=== PATIENT | female | born 1985 | race Caucasian/White ===

== ENCOUNTER 2022-05-14 18:28 | Observation (INO) | payer MEDICAID, SELFPAY ==
[2022-05-14] VITALS (7 sets, daily range): BP systolic 160–219; BP diastolic 80–121; PULSE 74–79; RESP 18–22; TEMP 36.6–36.8; O2SAT 95–98; BMI 39.1
--- NOTE | 2022-05-14 18:30 | XRR_ITS ---
PROCEDURE INFORMATION: Exam: XR Chest Exam date and time: 05/14/2022 6:38 PM Age: 36 years old Clinical indication: Pain; Chest pressure; Additional info: Cp TECHNIQUE: Imaging protocol: Radiologic exam of the chest. Views: 1 view. COMPARISON: No relevant prior studies available. FINDINGS: Lungs: Unremarkable for portable technique. No consolidation. Pleural spaces: Unremarkable. No pleural effusion. No pneumothorax. Heart/Mediastinum: Unremarkable. No cardiomegaly. Bones/joints: Unremarkable for age. XR/XR chest 1V portable [id number] IMPRESSION: Negative portable chest.
--- NOTE | 2022-05-14 18:58 | ED_ITS ---
HPI - Abdominal Pain General: Chief Complaint: Abdominal Pain Stated Complaint: right side pain,n/v Time Seen by Provider: 05/14/22 18:32 Source: patient Mode of arrival: ambulatory Limitations: no limitations History of Present Illness: 36-year-old female states roughly 4 hours ago she had a sudden onset of right-sided flank pain she states the pain is currently a 7 out of 10 its caused her to have some nausea and vomiting states she has had a kidney stone in the past she denies any worsening proving factors denies any dysuria denies any fevers. Associated Symptoms: Reports nausea and vomiting; Denies chills and fever(s) Review of Systems Const: Denies: fever(s), chills, body aches or change in appetite Eyes: Denies: blurry vision or eye discomfort ENMT: Denies: throat pain or dental pain Card: Denies: chest pain Resp: Denies: dyspnea GI: Reports: nausea and vomiting : Reports: flank pain Musc: Denies: neck pain or back pain Skin/Breast: Denies: rash Neuro: Denies: headache(s) Psych: Denies: depression Alexis/Lymph: Denies: easy bruising All/Imm: Denies: urticaria PFSH ED PFSH: Medical History Generalized anxiety disorder Lost custody of children Major depressive disorder Social History Current gender identity: Female Physical Exam Const: COMMON NORMALS: no acute distress, patient oriented x3 and healthy appearing HENMT: COMMON NORMALS: normocephalic and atraumatic HEAD & SCALP: normocephalic and atraumatic Eye: COMMON NORMALS: Equal, round and reactive pupils present and EOMs intact bilaterally PUPIL: Yes Equal, round and reactive pupils present Neck/C-Spine: COMMON NORMALS: full ROM and supple Chest: COMMONS NORMALS: normal inspection of the chest and normal palpation of entire chest wall Resp: COMMON NORMALS: normal respiratory effort, No retractions, No use of accessory muscles and clear to auscultation bilaterally AUSCULTATION: clear to auscultation bilaterally Cardio: COMMON NORMALS: regular rate, regular rhythm and No murmurs present (Cardio) RATE: regular rate RHYTHM: regular rhythm GI: COMMON NORMALS: Normal to inspection, nondistended, normoactive bowel sounds present, Soft to palpation, non-tender and no masses PALPATION: Yes Soft to palpation Extremity: COMMON NORMALS: normal to inspection and full ROM Neuro: COMMON NORMALS: patient oriented x3, moves all extremities and no focal motor deficits Psych: COMMON NORMALS: mental status grossly normal, Normal thought process present and cooperative THOUGHT PROCESS: Normal thought process present Skin: COMMON NORMALS: no rashes or lesions noted and no wounds GENERAL SKIN EXAM: no rashes or lesions noted Course Vital Signs: Vital signs: Vital Signs Temperature 98.3 F 05/14/22 18:46 Pulse Rate 74 05/14/22 18:46 Respiratory Rate 22 H 05/14/22 18:46 Blood Pressure 195/121 05/14/22 18:46 Pulse Oximetry 98 05/14/22 18:46 Oxygen Delivery Me thod 05/14/22 18:46 MDM - Abdominal Pain Medical Decision Making Patient presents here with flank pain she does have a kidney stone along with a UTI she is afebrile her pain is much improved I spoke to Dr. Bai will admit at this time on IV antibiotics. Lab Data 05/14/22 18:56 05/14/22 18:56 Labs/Radiology: Radiology Impressions Chest X-Ray 05/14/22 18:30 IMPRESSION: Negative portable chest. Abdomen/Pelvis CT 05/14/22 18:58 IMPRESSION: 1. 5 mm obstructing calculus right mid ureter resulting in moderate right-sided hydronephrosis. 2. Additional tiny nonobstructing calculi both kidneys. Laboratory Results WBC 12.9 10^3/uL (4.0-10.0) H 05/14/22 18:56 RBC 4.96 10^6/uL (4.1-5.3) 05/14/22 18:56 Hgb 9.1 g/dL (11.5-15.3) L 05/14/22 18:56 Hct 33.5 % (37.0-47.0) L 05/14/22 18:56 MCV 67.5 fl (81-99) L 05/14/22 18:56 MCH 18.3 pg (28.0-34.0) L 05/14/22 18:56 MCHC 27.2 g/dL (30.0-36.0) L 05/14/22 18:56 RDW 20.4 % (12.1-15.1) H 05/14/22 18:56 Plt Count 216 10^3/cmm (130-400) 05/14/22 18:56 MPV Not Reportable 05/14/22 18:56 Neut % (Auto) 85.6 % 05/14/22 18:56 Lymph % (Auto) 7.2 % 05/14/22 18:56 [place] % (Auto) 6.1 % 05/14/22 18:56 Eos % (Auto) 0.4 % 05/14/22 18:56 Baso % (Auto) 0.3 % 05/14/22 18:56 Neut # (Auto) 11.06 10^3/uL (1.8-7.7) H 05/14/22 18:56 Lymph # (Auto) 0.9 10^3/uL (0.8-4.8) 05/14/22 18:56 [place] # (Auto) 0.8 10^3/uL (0.2-0.9) 05/14/22 18:56 Eos # (Auto) 0.1 10^3/uL (0.0-0.8) 05/14/22 18:56 Baso # (Auto) 0.0 10^3/uL (0.0-0.1) 05/14/22 18:56 Nucleated RBC % (auto) 0 % 05/14/22 18:56 Nucleated RBCs # 0.0 /100WBC 05/14/22 18:56 Sodium 137 mmol/L (136-145) 05/14/22 18:56 Potassium 3.2 mmol/L (3.5-5.1) L 05/14/22 18:56 Chloride 103 mmol/L (98-107) 05/14/22 18:56 Carbon Dioxide 20 mmol/L (22-29) L 05/14/22 18:56 Anion Gap 17.2 (5-19) 05/14/22 18:56 BUN 10 mg/dL (6-20) 05/14/22 18:56 Creatinine 0.6 mg/dL (0.5-0.9) 05/14/22 18:56 GFR Calculation 113.1 mL/min (90-130) 05/14/22 18:56 Glucose 110 mg/dL (65-115) 05/14/22 18:56 Calculated Osmolality 284 mOsm/kg (285-295) L 05/14/22 18:56 Calcium 9.3 mg/dL (8.5-10.5) 05/14/22 18:56 Total Bilirubin 0.3 mg/dL (0.15-1.2) 05/14/22 18:56 AST 16 U/L (0-32) 05/14/22 18:56 ALT 12 U/L (0-33) 05/14/22 18:56 Alkaline Phosphatase 124 U/L (35-105) H 05/14/22 18:56 Total Protein 7.5 g/dL (6.6-8.7) 05/14/22 18:56 Albumin 4.4 g/dL (3.5-5.2) 05/14/22 18:56 Globulin 3.1 g/dL (1.3-4.6) 05/14/22 18:56 Lipase 95 U/L (13-60) H 05/14/22 18:56 HCG, Qual Negative (Negative) 05/14/22 18:56 Urine Color Yellow (Yellow) 05/14/22 19:25 Urine Appearance Hazy (CLEAR) A 05/14/22 19:25 Urine pH 6 (5-7) 05/14/22 19:25 Ur Specific [place] 1.030 (1.005-1.030) 05/14/22 19:25 Urine Protein 1+ (Negative) H 05/14/22 19:25 Urine Glucose (UA) Norm (Normal) 05/14/22 19:25 Urine Ketones 1+ (Negative) H 05/14/22 19:25 Urine Blood 3+ (Negative) H 05/14/22 19:25 Urine Nitrate Positive (Negative) H 05/14/22 19:25 Urine Bilirubin 1+ (Negative) H 05/14/22 19:25 Urine Urobilinogen 1 mg/dL (Negative) H 05/14/22 19:25 Ur Leukocyte Esterase 2+ (Negative) H 05/14/22 19:25 Urine RBC >100 /hpf (0-2) H 05/14/22 19:25 Urine WBC >100 /hpf (0-5) H 05/14/22 19:25 Ur Squamous Epith Cells 5-10 /hpf (0-5) H 05/14/22 19:25 Amorphous Sediment Not Reportable 05/14/22 19:25 Urine Bacteria 3+ /hpf (NONE) H 05/14/22 19:25 Urine Mucus 1+ /hpf 05/14/22 19:25 Discharge Plan Discharge Patient Disposition: Admitted As Inpatient Clinical Impression: Kidney stone, Acute cystitis Condition: Stable Prescriptions: No Action lisinopril 2.5 mg tablet 2.5 mg PO DAILY sertraline 50 mg tablet See Rx Instructions .ROUTE .COMPLEX 30 Days Qty: 30 3RF Rx Instructions: take a half-tab po q day x 6 days then take a whole tab po daily if tolerated Coding Level of Care Code ED [employer] for Aayush Knutson
--- NOTE | 2022-05-14 18:58 | CTR_ITS ---
PROCEDURE INFORMATION: Exam: CT Abdomen And Pelvis Without Contrast Exam date and time: 05/14/2022 7:26 PM Age: 36 years old Clinical indication: Abdominal pain; Flank; Right; Prior surgery; Surgery type: C-sec; Additional info: Right flank pain TECHNIQUE: Imaging protocol: Computed tomography of the abdomen and pelvis without contrast. Radiation optimization: All CT scans at this facility use at least one of these dose optimization techniques: automated exposure control; mA and/or kV adjustment per patient size (includes targeted exams where dose is matched to clinical indication); or iterative reconstruction. REPORTING DATA: Count of CT and Cardiac NM exams in prior 12 months: This patient has received 0 known CTs and 0 known cardiac nuclear medicine studies in the 12 months prior to the current study. COMPARISON: CR (CHEST, ) 05/14/2022 6:38 PM RADIATION DOSE METRICS: Total DLP (mGy-cm): 939.48 FINDINGS: Lungs: Lung bases are clear. Liver: Normal. No mass. Gallbladder and bile ducts: Normal. No calcified stones. No ductal dilation. Pancreas: Normal. No ductal dilation. Spleen: Normal. No splenomegaly. Adrenal glands: Normal. No mass. Kidneys and ureters: 5 mm obstructing calculus right mid ureter resulting in moderate right hydronephrosis. Multiple tiny nonobstructing calculi both kidneys. Stomach and bowel: Unremarkable. No obstruction. No mucosal thickening. Appendix: No evidence of acute appendicitis. Intraperitoneal space: Unremarkable. No free air. No significant fluid collection. Vasculature: Unremarkable. No abdominal aortic aneurysm. Lymph nodes: Unremarkable. No enlarged lymph nodes. Urinary bladder: Unremarkable as visualized. Reproductive: Unremarkable as visualized. Bones/joints: Unremarkable. No acute fracture. Soft tissues: Unremarkable. CT/CT kidney stone [id number] IMPRESSION: 1. 5 mm obstructing calculus right mid ureter resulting in moderate right-sided hydronephrosis. 2. Additional tiny nonobstructing calculi both kidneys.
[2022-05-14] MEDS: sodium chloride 0.9% 1,000 ML 999 ML IV (19:01)
[2022-05-14] MEDS: ondansetron 2 mg/ML SDV 2 mL 4 MG IVP ×2 (19:01→23:34)
[2022-05-14] MEDS: morphine 4 mg/mL SDV 1 mL IVP ×2 (19:01→21:53)
[2022-05-14 19:22] LABS: HCG, Serum Qual Negative (Negative)
[2022-05-14 19:25] LABS: Alanine Aminotransferase 12 U/L (0-33); Albumin Level 4.4 g/dL (3.5-5.2); Alkaline Phosphatase 124 U/L (35-105); Anion Gap 17.2 (5-19); Aspartate Amino Transferase 16 U/L (0-32); Blood Urea Nitrogen 10 mg/dL (6-20); Calcium 9.3 mg/dL (8.5-10.5); Carbon Dioxide 20 mmol/L (22-29); Chloride 103 mmol/L (98-107); Globulin 3.1 g/dL (1.3-4.6); Glomerular Filtration Rate 113.1 mL/min (90-130); Glucose 110 mg/dL (65-115); Lipase 95 U/L (13-60); Osmolality Calculated 284 mOsm/kg (285-295); Potassium 3.2 mmol/L (3.5-5.1); Sodium 137 mmol/L (136-145); Total Bilirubin 0.3 mg/dL (0.15-1.2); Total Protein 7.5 g/dL (6.6-8.7)
[2022-05-14 19:26] LABS: Basophils % 0.3 %; Eosinophils # 0.1 10^3/uL (0.0-0.8); Eosinophils % 0.4 %; Hematocrit 33.5 % (37.0-47.0); Hemoglobin 9.1 g/dL (11.5-15.3); Lymphocytes # 0.9 10^3/uL (0.8-4.8); Lymphocytes % 7.2 %; Mean Corpuscular HGB Conc 27.2 g/dL (30.0-36.0); Mean Corpuscular Hemoglobin 18.3 pg (28.0-34.0); Mean Corpuscular Volume 67.5 fl (81-99); Monocytes # 0.8 10^3/uL (0.2-0.9); Monocytes % 6.1 %; Neutrophils # 11.06 10^3/uL (1.8-7.7); Neutrophils % 85.6 %; Nucleated Red Blood Cells % 0 %; Platelet Count 216 10^3/cmm (130-400); Red Blood Count 4.96 10^6/uL (4.1-5.3); Red Cell Distribution Width 20.4 % (12.1-15.1); White Blood Count 12.9 10^3/uL (4.0-10.0)
[2022-05-14 19:50] LABS: Add Urine Microscopic? YES; Bilirubin Urine 1+ (Negative); Blood Urine 3+ (Negative); Glucose Urine UA Norm (Normal); Ketones Urine 1+ (Negative); Leukocyte Esterase Urine 2+ (Negative); Nitrate Urine Positive (Negative); Protein Urine 1+ (Negative); Urine Appearance Hazy (CLEAR); Urine Color Yellow (Yellow); Urobilinogen Urine 1 mg/dL (Negative); pH Urine 6 (5-7)
[2022-05-14 19:53] LABS: Bacteria Urine 3+ /hpf; Mucus Urine 1+ /hpf; RBC Urine >100 /hpf (0-2); WBC Urine >100 /hpf (0-5)
[2022-05-14 19:54] LABS: Add Urine Culture? Yes
[2022-05-14 20:01] LABS: Slide Review Slide Review Perform
[2022-05-14] MEDS: cefTRIAXone 1,000 MG in sodium chloride 0.9% (plus) 50 ML 100 MG IV (20:03)
[2022-05-14] MEDS: HYDROmorphone 1 mg/mL INJ 1 mL 0.5 MG IVP (20:04)
--- NOTE | 2022-05-14 21:03 | P.HP_ITS ---
Providers/Chief Complaint Admitting Physician: Bolivar Bai MD Chief Complaint: Right ureteral stone History of Present Illness Elaine Isaacs is a 36 year old female presenting to ED tonight with abrupt onset of Right renal colicky pain rated as severe and associated with Nausea and Vomitting but no fever or chills. No clinical symptoms of cystitis but UA was + for RBCs and WBCs as well as bacteria. Nitrite +. CBC showed mildly elevate WBC. No hemodynamic signs of sepsis. Pain aggressively managed. Additional work up: * CT scan: 5 mm RIGHT MID URETERAL STONE with obstructive changes. Multiple small nonobstructing bilateral renal stones. * Vital signs stable. Patient does have a history of 1 spontaneous stone passage previously. No prior surgery for stones. Denies any recurrent UTIs Pain well controlled but due to evidence of cystitis and the concern for the potential of infectious progression in my conversation with the ED physician I recommended admission for IV antibiotics, pain control, and close observation. Will allow clear liquids tonight and place npo after MN to have the option for intervention if necessary. Review of Systems Const: Denies: fever(s), chills or body aches Eyes: Denies: blurry vision or yellow eyes Card: Denies: chest pain Resp: Denies: dyspnea or wheezing GI: Reports: abdominal pain, nausea and vomiting : Reports: flank pain; Denies: difficulty voiding, dysuria or urinary frequency Musc: Denies: extremity swelling, joint pain, joint redness or joint warmth Skin/Breast: Denies: rash Neuro: Denies: confusion or Slurred speech present Psych: Reports: anxiety and depression Endo: Denies: flushing Alexis/Lymph: Denies: easy bruising or easy bleeding All/Imm: Denies: urticaria or acute wheezing Medications/Allergies Home Medications Medication Instructions Recorded Confirmed Last Taken Type lisinopril 2.5 mg tablet 2.5 mg PO DAILY 04/08/20 04/08/20 Unknown History sertraline 50 mg tablet See Rx Instructions .Route 04/09/20 04/09/20 Unknown Rx .COMPLEX 30 days #30 tabs Allergies Allergy/AdvReac Type Severity Reaction Status Date / Time No Known Allergies Allergy Unverified 12/25/19 10:12 PFSH Acute PFSH: Medical History (Updated 05/15/22 @ 08:02 by Bolivar Bai MD) Generalized anxiety disorder Lost custody of children Major depressive disorder Surgical History (Updated 05/15/22 @ 08:02 by Bolivar Bai MD) History of History of tonsillectomy Social History (Updated 05/15/22 @ 08:02 by Bolivar Bai MD) Marital status: Current gender identity: Female Vitals/I&O/Wt Last Vital Signs Temp 98.3 F 05/14/22 18:46 Pulse 74 05/14/22 18:46 Resp 22 H 05/14/22 18:46 BP 195/121 05/14/22 18:46 Pulse Ox 98 05/14/22 18:46 O2 Del Method 05/14/22 18:46 Weight last 48 hrs Weight 250 lb Physical Exam Const: COMMON NORMALS: alert and well nourished GENERAL APPEARANCE: well kempt and well developed ORIENTATION/CONSCIOUSNESS: not confused HENMT: COMMON NORMALS: normocephalic HEAD & SCALP: normal to inspection and normocephalic Eye: COMMON NORMALS: conjunctivae normal and no scleral icterus CONJUNCTIVA: Yes conjunctivae normal Neck/C-Spine: GENERAL: Yes normal visual inspection Lymph: OTHER: No groin lymphadenopathy Chest: OTHER: Normal movements Resp: COMMON NORMALS: normal respiratory effort EFFORT & INSPECTION: Yes able to speak in complete sentences, No labored and No Actively coughing Cardio: OTHER: Regular rate and rhythm no murmurs GI: OTHER: Tender abdomen no rebound : OTHER: Bladder nondistended Back/Pelvis: OTHER: Right CVA tenderness Extremity: COMMON NORMALS: no clubbing, cyanosis or edema Neuro: COMMON NORMALS: no focal motor deficits SENSORIUM/ORIENTATION: Yes alert Psych: COMMON NORMALS: mental status grossly normal APPEARANCE: Yes grossly normal and Yes well kempt ATTITUDE: Yes calm and Yes engaged Skin: COMMON NORMALS: no rashes or lesions noted and no jaundice GENERAL SKIN EXAM: no rashes or lesions noted Data 05/14/22 18:56 05/14/22 18:56 A&P Assessment and plan (1) Acute cystitis: No septic symptoms (2) Right ureteral calculus: 5 mm right mid ureteral stone with obstruction and refractory symptoms and concern for evidence of cystitis although no septic symptoms (3) Generalized anxiety disorder: (4) Coronary artery disease: Plan Observe overnight. Treat with antibiotics. Reassess in the morning. Attestations Medical Necessity Statement*: Refractory nausea and vomiting secondary to an obstructing right mid ureteral stone with evidence of cystitis Not a candidate for outpatient management Coding Level of Care Code Acute Code for Chg Fwd Diagnoses Acute cystitis N30.00 Right ureteral calculus N20.1 Generalized anxiety disorder F41.1 Coronary artery disease I25.10
[2022-05-14] MEDS: hyDRALAzine 20 mg/mL INJ 1 mL 10 MG IVP (21:12)
[2022-05-14] MEDS: potassium chloride ER 20 mEq Tablet 40 MEQ PO (22:04)
[2022-05-14] MEDS: dextrose 5%-ns + KCl 20 20 MEQ/1,000 ML BAG 125 MEQ IV (22:04)
[2022-05-14] MEDS: ondansetron 4 MG Tablet PO (22:08)
--- NOTE | 2022-05-14 22:16 | PC.NURSE ---
Patient arrived to [place] [address] at 2125. Completed admission assessment. Patient began stating she felt nauseous during the assessment and then had 2 episodes of clear emesis. Oral zofran was given for nausea, morphine IVP was given for pain rated 8/10, and fluids were started. Patient's at bedside. Needs met at this time.
[2022-05-14] MEDS: ketorolac 30 mg/mL INJ 15 MG IVP (23:38)
[2022-05-15] VITALS (16 sets, daily range): BP systolic 130–183; BP diastolic 60–103; PULSE 63–99; RESP 16–19; TEMP 36.6–37.1; O2SAT 92–98
[2022-05-15] MEDS: metoprolol tartrate 25 mg Tablet PO ×2 (00:45→20:53)
[2022-05-15] MEDS: lisinopril 2.5 mg Tablet PO (00:45)
[2022-05-15] MEDS: promethazine 25 mg Supp PR (05:12)
[2022-05-15] MEDS: ketorolac 30 mg/mL INJ 15 MG IVP (05:42)
[2022-05-15] MEDS: morphine 4 mg/mL SDV 1 mL IVP (05:43)
[2022-05-15] MEDS: LORazepam 2 mg/mL INJ 1 mL 0.5 MG IVP (05:55)
[2022-05-15 05:59] LABS: Basophils % 0.2 %; Hematocrit 33.9 % (37.0-47.0); Hemoglobin 9.3 g/dL (11.5-15.3); Lymphocytes # 0.9 10^3/uL (0.8-4.8); Lymphocytes % 5.5 %; Mean Corpuscular HGB Conc 27.4 g/dL (30.0-36.0); Mean Corpuscular Hemoglobin 18.1 pg (28.0-34.0); Mean Corpuscular Volume 66.1 fl (81-99); Monocytes # 0.9 10^3/uL (0.2-0.9); Monocytes % 5.5 %; Neutrophils # 14.19 10^3/uL (1.8-7.7); Neutrophils % 88.5 %; Nucleated Red Blood Cells % 0 %; Platelet Count 228 10^3/cmm (130-400); Red Blood Count 5.13 10^6/uL (4.1-5.3); Red Cell Distribution Width 20.1 % (12.1-15.1); White Blood Count 16.1 10^3/uL (4.0-10.0)
--- NOTE | 2022-05-15 06:14 | XRR_ITS ---
PROCEDURE INFORMATION: Exam: XR Abdomen Exam date and time: 05/15/2022 5:53 AM Age: 36 years old Clinical indication: Abdominal pain; Flank; Right; Additional info: F/u right ureteral stone. Not portable TECHNIQUE: Imaging protocol: Radiologic exam of the abdomen. Views: Frontal supine view of the abdomen. 1 View. Total images: 2 COMPARISON: CT kidney stone [id number] 05/14/2022 7:26 PM FINDINGS: Gastrointestinal tract: Bowel gas pattern is nondistended and nonobstructive. Vasculature: Incidental phleboliths noted. Bones/joints: Questionable small calcification projecting just superior to right transverse process of L4 may represent ureteral calculus seen on prior CT. Other findings: Mild stool burden. XR/XR KUB [id number] IMPRESSION: 1. Normal bowel gas pattern 2. Questionable small calcification projecting just superior to right transverse process of L4 may represent ureteral calculus seen on prior CT.
[2022-05-15 06:19] LABS: Alanine Aminotransferase 13 U/L (0-33); Albumin Level 4.4 g/dL (3.5-5.2); Alkaline Phosphatase 128 U/L (35-105); Anion Gap 19.2 (5-19); Aspartate Amino Transferase 14 U/L (0-32); Blood Urea Nitrogen 7 mg/dL (6-20); Calcium 9.4 mg/dL (8.5-10.5); Carbon Dioxide 17 mmol/L (22-29); Chloride 103 mmol/L (98-107); Globulin 3.5 g/dL (1.3-4.6); Glomerular Filtration Rate 113.1 mL/min (90-130); Glucose 145 mg/dL (65-115); Osmolality Calculated 283 mOsm/kg (285-295); Potassium 3.2 mmol/L (3.5-5.1); Sodium 136 mmol/L (136-145); Total Bilirubin 0.5 mg/dL (0.15-1.2); Total Protein 7.9 g/dL (6.6-8.7)
--- NOTE | 2022-05-15 06:21 | PC.NURSE ---
This nurse entered the patient's room to resume IV fluid administration after the patient returned from her KUB. The patient's was ambulating the patient back to bed from the bathroom and began to angrily question the reason for ativan administration, stating She's all fucked up, she can't feel her legs, she can't walk, she has pins and needles and she won't stop throwing up and being sick. It's because of all the shit you keep piling on top of her. This nurse educated the patient and about the purpose of each medication that had been administered, reassuring him that this nurse is only trying to help the patient feel better by reducing nausea and pain. When this nurse attempted to administer IV fluids, the patient's stated She doesn't need anymore of that shit you keep giving her. This nurse educated the purpose of the IV fluids mixed with potassium; after educating the patient agreed to the fluids. The patient stated I'm so fucked up, I'm so sick, I can't stop throwing up, I'm just fucked up. The patient's then continued to question what time the patient's surgery was scheduled for, stating They said it would be first thing in the morning. It better be! This nurse explained to the patient and that she could check the surgery schedule but could not make any promises about timing. This nurse then explained that she would be back to check on the patient shortly and left the room.
--- NOTE | 2022-05-15 06:42 | PC.NURSE ---
Pt and significant other remain highly anxious, requesting medications to help with pain, nausea, and sleep. Have referred pt to Dr. Bai several times for management of symptoms, however pt and significant other unhappy with orders and care received thus far. Education provided, will inform physician.
--- NOTE | 2022-05-15 08:03 | P.PN_ITS ---
Subjective Subjective: Urology follow-up: Hospital day #2 Difficult night. Had a lot of nausea and vomiting all night long and anxiety associated with that. Severe refractory right renal colic. No evidence of sepsis and fever but white count increased. Denies lower urinary tract symptoms consistent with UTI Also with refractory hypertension. She was treated with extra dose of lisinopril 2.5 mg as well as metoprolol. Apparently is a problem with her long- term. Today's labs shows stable creatinine, elevated white count to 16 and persistently mildly decreased potassium KUB this morning shows a stone in roughly the same position. She would like to do something more definitive than wait. See below. We did review her options and she wants to proceed with intervention. Given the infection concerns I expect that she will probably spend another night in the hospital for close observation To the operating room for endoscopic minimum stent placement and if possible definitive treatment of the stone. Vitals/I&O/Wt Last Vital Signs Temp 97.8 F 05/15/22 07:48 Pulse 63 05/15/22 07:48 Resp 17 05/15/22 07:48 BP 176/86 05/15/22 07:48 Pulse Ox 98 05/15/22 07:48 O2 Del Method 05/15/22 07:48 05/14/22 05/15/22 05/15/22 21:59 06:59 14:59 Intake Total Output Total Balance Weight last 48 hrs Weight 250 lb Physical Exam Const: COMMON NORMALS: alert and well nourished GENERAL APPEARANCE: well kempt and well developed ORIENTATION/CONSCIOUSNESS: not confused HENMT: COMMON NORMALS: normocephalic HEAD & SCALP: normal to inspection and normocephalic Neck/C-Spine: OTHER: Good range of motion Resp: COMMON NORMALS: normal respiratory effort EFFORT & INSPECTION: Yes able to speak in complete sentences, No labored and No Actively coughing OTHER: Clear to auscultation Cardio: OTHER: Regular rate and rhythm no murmurs GI: OTHER: Tender abdomen no rebound : OTHER: Bladder nondistended Extremity: COMMON NORMALS: no clubbing, cyanosis or edema Neuro: COMMON NORMALS: no focal motor deficits SENSORIUM/ORIENTATION: Yes alert Psych: COMMON NORMALS: mental status grossly normal APPEARANCE: Yes grossly normal and Yes well kempt ATTITUDE: Yes calm and Yes engaged Skin: COMMON NORMALS: no rashes or lesions noted and no jaundice GENERAL SKIN EXAM: no rashes or lesions noted Data 05/15/22 05:35 05/15/22 05:35 A&P Assessment and plan (1) Right ureteral calculus: Stone has not progressed on today's KUB We reviewed her options. She is not a candidate for discharge home due to the refractory symptoms mentioned above. Discussed continued inpatient observation with aggressive symptomatic treatment plus antibiotics versus intervention. Reviewed ESWL currently not available today versus endoscopy or stent placement alone. After detailed discussion of ins and outs related to the procedure benefits and risk potential complications alternatives she elected cystoscopy, RIGHT: Retrograde, ureteroscopy, laser, stent. The main priority is drainage of the kidney with a stent but if easy access to the stone is identified then treat the stone under the same setting. Did review the possibility of inability to even bypass the stone with a wire and a stent if that was the case she would require transfer to institution with inte rventional radiology for antegrade access possible antegrade stent. She expressed good understanding and has given informed. was present throughout the conversation and participated (2) Acute cystitis: On treatment. No evidence of progression to sepsis Continue Rocephin (3) Hypertension: Difficult to control overnight (4) Generalized anxiety disorder: Required some Ativan. Plan To surgery this morning when time available. See above Attestations Medical Necessity Statement*: See above. Not a candidate for outpatient management Coding Level of Care Code 92937 Diagnoses Right ureteral calculus N20.1 Acute cystitis N30.00 Hypertension I10 Generalized anxiety disorder F41.1
--- NOTE | 2022-05-15 08:27 | PC.PHAR ---
Addendum entered by Yin Mccarthy 05/15/22 10:08: PT STATES WAS ONLY USING [facility] STATES LAST FILLED METOPROLOL TARTRATE 50MG BID AND LISINOPRIL-HCTZ 20-25 ONE TAB DAILY LAST FILLED 07/09/21 30D/S-PT STATES TAKES BOTH MEDICATIONS ONE TAB BID-NOTES ARE MADE IN THE PHARMACY COMMENTS Original Note: [address] [phone] open at 10am today 05/15/22-pt states she takes lisinopril and metoprolol one tab bid pt unsure of the mg's
--- NOTE | 2022-05-15 08:46 | SC_ITS ---
WS: [id number] [place] [facility] REASON FOR EXAM: stent placement, retrograde pyleogram right FINDINGS: Proximal portion of the right ureteral stent appears to be in proper position. SC/[facility] [place] [facility] IMPRESSION: Right ureteral stent as above
--- NOTE | 2022-05-15 08:57 | P.OP_ITS ---
Operative Report Date of procedure: May 15, 2022 Pre-op diagnosis: 4 to 5 mm right mid ureteral stone with obstruction and UTI Post-op diagnosis: 4 to 5 mm right mid ureteral stone with obstruction and UTI Procedure done: 1. Cystoscopy, RIGHT: Retrograde, ureteroscopy, laser, stent Implants: Right ureteral stent (7 Portuguese by 28 cm double-pigtail without string) Specimens removed/disposition: Stone fragment Pathology: Stone fragments Surgeon: Richardson Estimated blood loss: Minimal Urine output: Not measured Complications: None Findings: Anesthesia: General Condition: Stable Disposition: PACU Intraoperative findings: * Stone in the expected position on retrograde. With passage of the wire the stone migrated into the kidney. * Completely fragmented with 365 ?m thulium superpulse laser fiber through flexible ureteroscope and one of the kidneys lower pole calyces. * Stent left indwelling at the completion of the procedure, no string. * No evidence of chronic cystitis in the bladder. Brief History: Katharine is a 36-year-old white female who I evaluated on 05/13/2022 for complaints of right renal colicky symptoms related to a 4 to 5 mm right mid ureteral stone with obstruction and UTI. She was admitted because of refractory symptoms. There did not appear to be a septic component. She was not having any lower urinary tract symptoms consistent with UTI. Her white count was mildly elevated. She did have a difficult night after admission with refractory nausea and vomiting and pain. Her white count bumped up from 12-16. She was afebrile. Based on the severity of her symptoms and the concern regarding the potential for infectious progression she was counseled on her options and ultimately elected to proceed with endoscopy and stent placement and if possible definitive treatment of the stone with laser lithotripsy Procedure: After urgent evaluation examination and obtaining of informed consent she was taken to the operating suite on 05/15/2022 where general anesthesia was administered without difficulty after appropriate timeout was performed, SCDs confirmed to be functioning, preoperative antibiotics administered, beta-loco protocol confirmed. Prepped and draped in usual sterile fashion in dorsolithotomy position pain careful attention to avoiding pressure points. 21 Portuguese cystoscope with 30 degree lens was introduced into the RIETHER meatus and advanced into the bladder under videoscopy. Bladder was systematically examined. No stone was seen. An 8 Portuguese cone-tip catheter was intubated into the right ureteral orifice for an RIGHT RETROGRADE URETEROPYELOGRAM demonstrating: The ureter distal to the stone was normal course and caliber. A filling defect consistent with a stone by L4 was confirmed. Ureter proximal to that point was markedly dilated. A flexible tip guidewire was then advanced up the right ureter bypassing the stone. The distal ureter was dilated with a and inner sheath on the ureteral access sheath over the guidewire under fluoroscopic monitoring the inner sheath. A second flexible tip guidewire was then passed up the right ureter into appropriate position. This wire was then used as the working wire for passage of the 24 cm ureteral access sheath under fluoroscopic guidance up the right ureter to the hub. The wire was removed and a 7 Portuguese offset semirigid ureteroscope was then advanced up the sheath. The stone was not encountered in its expected position and the scope was passed to the UP junction and the stone was not identified. The rigid scope was then replaced with a flexible ureteroscope and the scope was easily passed up into the kidney and the stone was identified in the renal pelvis. It was pushed into one of the mid/lower pole calyces and then completely fragmented with a 365 ?m thulium superpulse laser fiber into sand. Particles were too small to secure in the basket. Inspection of several of the calyces were failed to reveal any obvious stones. There were a few tiny calcifications adherent to some of the renal papilla consistent with the findings on the CT scan. No definitive stones The sheath was backed onto the hub of the flexible ureteroscope and the ureter was inspected as the scope was removed. There was a lot of inflammatory change where the stone had been located. It was decided to leave a stent indwelling Cystoscope was then backloaded over the safety guidewire which had been secured to the drapes. A 7 Portuguese by 28 cm double-pigtail stent was advanced over the guidewire through the cystoscope into appropriate position as confirmed via fluoroscopy and cystoscopy. The bladder was drained after confirming good function of the stent. She tolerated procedure well without complications and was awakened in the operating room and returned to PACU in stable condition. PLANS: 1. Continue inpatient monitoring today and tonight with likely discharge tomorrow if she has no progression of infectious concerns. 2. Emphasized the importance of having the stent removed in a timely fashion.
[2022-05-15] MEDS: cefTRIAXone 1,000 MG in sodium chloride 0.9% (plus) 50 ML 100 MG IV ×4 (09:10→22:08)
[2022-05-15] MEDS: sodium chloride 0.9% 1,000 ML 30 ML IV (09:10)
--- NOTE | 2022-05-15 09:40 | SUR.OPER ---
OMNIPAQUE 350MGI/ML 10ML USED LOT [id number]. EXP 07/29/24
[2022-05-15] MEDS: metoprolol succinate ER (24 HR) 25 mg Tablet PO (12:43)
[2022-05-15] MEDS: HYDROcodone-acetaminophen 5-325 mg Tablet 1 TAB PO ×3 (12:43→22:08)
[2022-05-15] MEDS: dextrose 5%-ns + KCl 20 20 MEQ/1,000 ML BAG 125 MEQ IV (20:35)
[2022-05-16 00:27] VITALS: BP 171/80; PULSE 55; RESP 17; TEMP 36.9; O2SAT 95
[2022-05-16 04:08] VITALS: BP 164/88; PULSE 53; RESP 18; TEMP 37.1; O2SAT 93
[2022-05-16] MEDS: dextrose 5%-ns + KCl 20 20 MEQ/1,000 ML BAG 125 MEQ IV (04:31)
--- NOTE | 2022-05-16 07:22 | PM.DCS ---
Discharge Providers Date of Admission: 05/14/22 20:21 Date of Discharge: May 16, 2022 Attending Provider at Admission: Bolivar Bai MD Attending Provider at Discharge: Bolivar Bai MD Diagnoses at Discharge Discharge Diagnosis (1) Right ureteral calculus: Details from hospital stay: Treated with laser lithotripsy Status: Acute (2) Acute cystitis: Details from hospital stay: Treated with antibiotics which were continued at discharge Status: Acute (3) Hypertension: Details from hospital stay: Chronic. Does need close follow-up with her primary care Status: Acute (4) Generalized anxiety disorder: Details from hospital stay: Did okay Status: Acute Reason for Visit Reason for Visit: Right ureteral stone Brief History: Presented to the emergency department on 05/14/2022 with refractory symptoms related to a obstructing right mid ureteral stone complicated by cystitis. Could not control her pain and nausea adequately emergency department and was admitted for further evaluation and treatment. Hospital Course Hospital Course Stone failed to progress on serial KUBs and ultimately she elected to proceed with treatment and endoscopy was selected. On 05/15/2022 she underwent cystoscopy, ureteroscopic laser lithotripsy, stent placement. Postop she was observed overnight to make sure there were no concerns related to the progression of infectious symptoms and she did well and was discharged on postoperative day #1 in stable condition. We had a discussion on the importance of stone risk reduction long-term. We will provide a handout and explanation for that when she follows up for stent removal. Also emphasized the importance of having a stent removal. No compromise there Physical Exam Narrative: Alert oriented no acute distress No labored respiration. No audible wheezes Abdomen nontender Good movement of all extremities, no focal deficits. Back to baseline Discharge Data Studies Completed and Pending Completed Studies During Hospitalization Category Date Time Status CT kidney stone [id number] Stat Cat Scan 05/14/22 18:58 Completed XR KUB [id number] Routine Exams 05/15/22 06:14 Completed XR chest 1V portable [id number] Stat Exams 05/14/22 18:30 Completed Pending at discharge Category Date Time Status C-arm FL for Urology Routine Exams 05/15/22 08:46 Taken Urine Culture Stat Lab 05/14/22 19:25 Received Radiology Impressions Chest X-Ray 05/14/22 18:30 IMPRESSION: Negative portable chest. Abdomen/Pelvis CT 05/14/22 18:58 IMPRESSION: 1. 5 mm obstructing calculus right mid ureter resulting in moderate right-sided hydronephrosis. 2. Additional tiny nonobstructing calculi both kidneys. KUB X-Ray 05/15/22 06:14 IMPRESSION: 1. Normal bowel gas pattern 2. Questionable small calcification projecting just superior to right transverse process of L4 may represent ureteral calculus seen on prior CT. Laboratory Results WBC 16.1 10^3/uL (4.0-10.0) H 05/15/22 05:35 RBC 5.13 10^6/uL (4.1-5.3) 05/15/22 05:35 Hgb 9.3 g/dL (11.5-15.3) L 05/15/22 05:35 Hct 33.9 % (37.0-47.0) L 05/15/22 05:35 MCV 66.1 fl (81-99) L 05/15/22 05:35 MCH 18.1 pg (28.0-34.0) L 05/15/22 05:35 MCHC 27.4 g/dL (30.0-36.0) L 05/15/22 05:35 RDW 20.1 % (12.1-15.1) H 05/15/22 05:35 Plt Count 228 10^3/cmm (130-400) 05/15/22 05:35 MPV Not Reportable 05/15/22 05:35 Neut % (Auto) 88.5 % 05/15/22 05:35 Lymph % (Auto) 5.5 % 05/15/22 05:35 [place] % (Auto) 5.5 % 05/15/22 05:35 Eos % (Auto) 0.0 % 05/15/22 05:35 Baso % (Auto) 0.2 % 05/15/22 05:35 Neut # (Auto) 14.19 10^3/uL (1.8-7.7) H 05/15/22 05:35 Lymph # (Auto) 0.9 10^3/uL (0.8-4.8) 05/15/22 05:35 [place] # (Auto) 0.9 10^3/uL (0.2-0.9) 05/15/22 05:35 Eos # (Auto) 0.0 10^3/uL (0.0-0.8) 05/15/22 05:35 Baso # (Auto) 0.0 10^3/uL (0.0-0.1) 05/15/22 05:35 Nucleated RBC % (auto) 0 % 05/15/22 05:35 Nucleated RBCs # 0.0 /100WBC 05/15/22 05:35 Sodium 136 mmol/L (136-145) 05/15/22 05:35 Potassium 3.2 mmol/L (3.5-5.1) L 05/15/22 05:35 Chloride 103 mmol/L (98-107) 05/15/22 05:35 Carbon Dioxide 17 mmol/L (22-29) L 05/15/22 05:35 Anion Gap 19.2 (5-19) H 05/15/22 05:35 BUN 7 mg/dL (6-20) 05/15/22 05:35 Creatinine 0.6 mg/dL (0.5-0.9) 05/15/22 05:35 GFR Calculation 113.1 mL/min (90-130) 05/15/22 05:35 Glucose 145 mg/dL (65-115) H 05/15/22 05:35 Calculated Osmolality 283 mOsm/kg (285-295) L 05/15/22 05:35 Calcium 9.4 mg/dL (8.5-10.5) 05/15/22 05:35 Total Bilirubin 0.5 mg/dL (0.15-1.2) 05/15/22 05:35 AST 14 U/L (0-32) 05/15/22 05:35 ALT 13 U/L (0-33) 05/15/22 05:35 Alkaline Phosphatase 128 U/L (35-105) H 05/15/22 05:35 Total Protein 7.9 g/dL (6.6-8.7) 05/15/22 05:35 Albumin 4.4 g/dL (3.5-5.2) 05/15/22 05:35 Globulin 3.5 g/dL (1.3-4.6) 05/15/22 05:35 Lipase 95 U/L (13-60) H 05/14/22 18:56 HCG, Qual Negative (Negative) 05/14/22 18:56 Urine Color Yellow (Yellow) 05/14/22 19:25 Urine Appearance Hazy (CLEAR) A 05/14/22 19:25 Urine pH 6 (5-7) 05/14/22 19:25 Ur Specific [place] 1.030 (1.005-1.030) 05/14/22 19:25 Urine Protein 1+ (Negative) H 05/14/22 19:25 Urine Glucose (UA) Norm (Normal) 05/14/22 19:25 Urine Ketones 1+ (Negative) H 05/14/22 19:25 Urine Blood 3+ (Negative) H 05/14/22 19:25 Urine Nitrate Positive (Negative) H 05/14/22 19:25 Urine Bilirubin 1+ (Negative) H 05/14/22 19:25 Urine Urobilinogen 1 mg/dL (Negative) H 05/14/22 19:25 Ur Leukocyte Esterase 2+ (Negative) H 05/14/22 19:25 Urine RBC >100 /hpf (0-2) H 05/14/22 19:25 Urine WBC >100 /hpf (0-5) H 05/14/22 19:25 Ur Squamous Epith Cells 5-10 /hpf (0-5) H 05/14/22 19:25 Amorphous Sediment Not Reportable 05/14/22 19:25 Urine Bacteria 3+ /hpf (NONE) H 05/14/22 19:25 Urine Mucus 1+ /hpf 05/14/22 19:25 Additional Data from Hospital Stay Did not have any concerns related to infection progression. Procedures Performed Cystoscopy, retrograde, ureteroscopy, laser, stent Vitals Last Vital Signs Temp 98.7 F 05/16/22 04:08 Pulse 53 L 05/16/22 04:08 Resp 18 05/16/22 04:08 BP 164/88 05/16/22 04:08 Pulse Ox 93 05/16/22 04:08 O2 Del Method 05/16/22 04:08 Discharge Plan Discharge Patient Disposition: Home Condition: Stable Prescriptions: New cefdinir 300 mg capsule 300 mg PO BID 10 Days Qty: 20 0RF hydrocodone-acetaminophen 5-325 mg tablet 1 tab PO Q8H PRN (Reason: pain) Qty: 8 0RF Continued Aleve 220 mg Tablet 440 mg PO Q12H PRN (Reason: Pain) metoprolol tartrate 50 mg Tablet 50 mg PO BID lisinopril-hydrochlorothiazide 20-25 mg Tablet 1 tab PO BID Discharge Orders: Discharge Order (Routine); Ordered 05/16/22 Ordered By: Bolivar Bai Referrals: Bolivar Bai MD [Physician] - 05/23/22 (KUB first Likely cystoscopy and stent removal) Discharge Diet: Advance as tolerated Discharge Activity: Increase activity as tolerated Patient Instructions: Opioid Safety Activity Restrictions/Additional Instructions: 1. The procedure went well. The stone was completely fragmented with the laser. 2. You have a stent indwelling and needs to be removed. We will plan on doing that next week in my office. 3. A prescription for a few pain pills has been provided in case you have significant pain but I expect that that will not be required. 4. Complete the antibiotic prescription was also provided. Discharge Attestations Time Spent in Discharge Care*: less than 30 min Quality Metrics Clinical Quality Measures [ No reported AMI, CVA or VTE this stay] Coding Level of Care Code Acute Code for Chg Fwd Diagnoses Right ureteral calculus N20.1 Acute cystitis N30.00 Hypertension I10 Generalized anxiety disorder F41.1
[2022-05-16 08:02] VITALS: BP 191/112; PULSE 59; RESP 18; TEMP 36.8; O2SAT 98
[2022-05-16] MEDS: metoprolol succinate ER (24 HR) 25 mg Tablet PO (08:27)
[2022-05-16] MEDS: HYDROcodone-acetaminophen 5-325 mg Tablet 1 TAB PO (08:27)
[2022-05-16] MEDS: lisinopril 5 mg Tablet PO (08:27)
== END 2022-05-16 09:22 | disposition home or self-care (01) ==
LOC: ER 20:25 → MEDSURG 21:05
PROVIDERS: Admitting Provider Urology; Emergency Provider Emergency Medicine; Visit Provider Urology
PROC: 0TJB8ZZ Inspection of Bladder, Via Natural or Artificial Opening Endoscopic (ICD-10-PCS; CPT 52000; principal; 2022-05-15 09:00)
PROC: (CPT 74420; 2022-05-15 09:00)
PROC: 0TJ98ZZ Inspection of Ureter, Via Natural or Artificial Opening Endoscopic (ICD-10-PCS; CPT 52351; 2022-05-15 09:00)
PROC: (CPT 52356; 2022-05-15 09:00)
PROC: (CPT 50605; 2022-05-15 09:00)
DX: N20.1 Calculus of ureter (principal); N13.5 Crossing vessel and stricture of ureter without hydronephrosis; N39.0 Urinary tract infection, site not specified; I10 Essential (primary) hypertension; F41.1 Generalized anxiety disorder
CPT/HCPCS: 52356; 36415; 71045; 74018; 74176; 76000; 80053; 81001; 83690; 84703; 85025; 87077; 87086; 87186; 96365; 96366; 96375; 96376; 99285; G0378; J0330; J0360; J0696; J1100; J1170; J1885; J2060; J2270; J2405; J2704; J2710; J3010; J3490; J7030; J8498; Q0162

== ENCOUNTER 2022-05-25 14:33 | Outpatient (CLI) | payer MEDICAID, SELFPAY ==
--- NOTE | 2022-05-25 14:56 | XR_ITS ---
WS: [id number] EXAMINATION: XR KUB [id number] REASON FOR EXAM: stones COMPARISON: None available. ORDER DATE: 05/25/2022 2:56 PM FINDINGS: There is a nonspecific colonic gas pattern with scattered fecal content and gas. There is no sign of significant small bowel dilation. Double-J ureteral stent is in satisfactory position in the right k idney collecting system XR/XR KUB [id number] IMPRESSION: Satisfactory right ureteral stent placement
== END 2022-05-25 14:34 | disposition home or self-care (01) ==
PROVIDERS: Visit Provider Urology
DX: N20.2 Calculus of kidney with calculus of ureter (principal); Z96.0 Presence of urogenital implants; N30.00 Acute cystitis without hematuria
CPT/HCPCS: 74018; 81003

== ENCOUNTER 2024-06-21 10:29 | Emergency (ER) | payer SELFPAY ==
[2024-06-21] VITALS (7 sets, daily range): BP systolic 147–165; BP diastolic 88–121; PULSE 57–80; RESP 15; TEMP 36.7; O2SAT 93–98; BMI 27.6
--- NOTE | 2024-06-21 11:17 | ED_ITS ---
HPI - Back Pain/Injury 2 General: Chief Complaint: Back Pain/Injury Stated Complaint: lower back pain Time Seen by Provider: 06/21/24 11:04 Source: patient Mode of arrival: ambulatory Limitations: no limitations History of Present Illness: Patient is a 38-year-old female presents to ED today with a complaint of lower back pain. Patient states she is concerned as she has a previous history of an infected ureter stone requiring ureteral stenting several years ago by Dr. Bai. She states she has had one episode of burning with urination over the past few days. She is not noticing any cloudy or odorous urine. No consistent urinary urgency, frequency, hesitancy. No fevers or vomiting. MD elicited complaint: back pain Pertinent past history: kidney stones Onset (ago): day(s) Timing: intermittent Severity: moderate Similar Symptoms Previously: Yes Location: lumbar spine, left flank and right flank Radiation: none Exacerbating factors: none Relieving factors: none Associated symptoms: Reports dysuria (once); Deny abdominal pain, chills, change in bowel habits, fatigue, fever(s), hematuria, nausea, urinary urgency or vomiting Work related injury: No Related Data Home Medications ?Medication ?Instructions ?Recorded ?Confirmed acetaminophen 325 mg tablet 650 mg PO QID PRN Fever Or Pain 06/21/24 06/21/24 (Tylenol) Allergies Allergy/AdvReac Type Severity Reaction Status Date / Time No Known Allergies Allergy Unverified 05/25/22 15:20 Review of Systems 2 Const: Denies: fever(s), chills, body aches, fatigue or malaise Card: Denies: chest pain Resp: Denies: dyspnea GI: Denies: abdominal pain, nausea, vomiting, diarrhea or change in bowel habits : Reports: flank pain and dysuria (once); Denies: difficulty voiding, urinary frequency, urinary urgency, urinary hesitancy or hematuria Musc: Reports: back pain; Denies: neck pain, extremity pain, extremity swelling, joint pain, joint swelling or joint redness Skin/Breast: Denies: rash Neuro: Denies: headache(s), numbness in extremities, weakness in extremities, sensory changes or dizziness PFSH ED 2 PFSH: Medical History Multiple renal calculi Punctate hard to even see on CT scan. Lost custody of children Generalized anxiety disorder Major depressive disorder Surgical History S/P ureteral stent placement Status post laser lithotripsy of ureteral calculus History of tonsillectomy History of Social History Smoking and tobacco/nicotine status: current every day tobacco/nicotine user Substance/Drug Use: never Marital status: Current occupational status: unemployed Current gender identity: Female Physical Exam 2 Const: COMMON NORMALS: no acute distress, average body habitus, patient oriented x3, no limitations, healthy appearing, alert and well nourished HENMT: COMMON NORMALS: normocephalic and atraumatic HEAD & SCALP: n ormocephalic and atraumatic Neck/C-Spine: COMMON NORMALS: full ROM, no lymphadenopathy, supple and no meningeal signs Chest: COMMONS NORMALS: normal inspection of the chest Resp: COMMON NORMALS: normal respiratory effort and clear to auscultation bilaterally AUSCULTATION: clear to auscultation bilaterally Cardio: COMMON NORMALS: regular rate and regular rhythm RATE: regular rate RHYTHM: regular rhythm GI: COMMON NORMALS: Normal to inspection, nondistended, normoactive bowel sounds present, Soft to palpation, non-tender, No hepatosplenomegaly present and no masses PALPATION: Yes Soft to palpation and Yes No hepatosplenomegaly present : BLADDER/KIDNEY EXAM: Yes CVA tenderness (mild bilaterally) Back/Pelvis: COMMON NORMALS: thoracic and lumbar spine normal to inspection, no thoracic nor lumbar tenderness, thoraco-lumbar ROM normal and straight leg raise negative bilaterally GENERAL BACK: Yes CVA tenderness (mild bilaterally) LUMBAR SPINE/LOWER BACK: Yes paraspinal muscle tenderness (pain across lower back) Extremity: COMMON NORMALS: normal to inspection GENERAL: Yes normal exam except as noted Neuro: COMMON NORMALS: patient oriented x3, moves all extremities, no focal motor deficits and no sensory deficits noted SENSORIUM/ORIENTATION: Yes alert MENINGEAL SIGNS: Yes no meningeal signs Skin: COMMON NORMALS: no rashes or lesions noted GENERAL SKIN EXAM: no rashes or lesions noted Course 2 Vital Signs: Vital signs: Vital Signs Temperature 98.1 F 06/21/24 10:48 Pulse Rate 80 06/21/24 10:48 Respiratory Rate 15 06/21/24 10:48 Blood Pressure 149/88 06/21/24 10:48 Pulse Oximetry 98 06/21/24 10:48 Oxygen Delivery Me thod Room Air 06/21/24 10:48 MDM - Back Pain/Injury Medical Decision Making Patient clinically appears in no acute distress. Vital signs are stable. Blood work overall is unremarkable. She has chronic microcytic anemia. Initial UA was contaminated with 11-20 squamous cells. Repeat urine analysis attempted with strict clean-catch instructions however her repeat urinalysis also contained 11-20 squamous cells. Nitrite negative. No blood. Trace leuks. CT renal showing no renal or ureteral obstruction. Patient is not consistently having UTI like symptoms-describes one episode of dysuria. At this time I would hold off on antibiotic therapy. Patient was given strict return to ED precautions. Medical Records I reviewed the patient's medical records. Labs I reviewed the patient's lab results. 06/21/24 11:14 06/21/24 11:14 Radiology Impressions Abdomen/Pelvis CT 06/21/24 11:52 IMPRESSION: 1. No renal or ureteral obstruction. 2. Very tiny nonobstructing bilateral renal calcifications. 3. No free fluid in the pelvis. 4. Normal appendix. 5. No GI tract obstruction. Laboratory Results WBC 6.75 10^3/uL (3.29-11.43) 06/21/24 11:14 RBC 4.79 10^6/uL (3.85-5.65) 06/21/24 11:14 Hgb 9.20 g/dL (11.27-16.99) L 06/21/24 11:14 Hct 32.9 % (36-47) L 06/21/24 11:14 MCV 68.7 fl (85-98) L 06/21/24 11:14 MCH 19.2 pg (27-33) L 06/21/24 11:14 MCHC 28.0 g/dL (30-55) L 06/21/24 11:14 RDW 20.0 % (12.1-15.1) H 06/21/24 11:14 Plt Count 174 10^3/cmm (157-399) 06/21/24 11:14 MPV 10.3 fL (7.4-10.4) 06/21/24 11:14 Neut % (Auto) 71.0 % 06/21/24 11:14 Lymph % (Auto) 21.6 % 06/21/24 11:14 [place] % (Auto) 5.8 % 06/21/24 11:14 Eos % (Auto) 0.7 % 06/21/24 11:14 Baso % (Auto) 0.6 % 06/21/24 11:14 Neut # (Auto) 4.79 10^3/uL (1.8-7.7) 06/21/24 11:14 Lymph # (Auto) 1.5 10^3/uL (0.8-4.8) 06/21/24 11:14 [place] # (Auto) 0.4 10^3/uL (0.2-0.9) 06/21/24 11:14 Eos # (Auto) 0.1 10^3/uL (0.0-0.8) 06/21/24 11:14 Baso # (Auto) 0.0 10^3/uL (0.0-0.1) 06/21/24 11:14 Nucleated RBC % (auto) 0 % 06/21/24 11:14 Nucleated RBCs # 0.0 /100WBC 06/21/24 11:14 Sodium 140 mmol/L (136-145) 06/21/24 11:14 Potassium 4.1 mmol/L (3.5-5.1) 06/21/24 11:14 Chloride 106 mmol/L (98-107) 06/21/24 11:14 Carbon Dioxide 23 mmol/L (22-29) 06/21/24 11:14 Anion Gap 15.1 (5-19) 06/21/24 11:14 BUN 12 mg/dL (6-20) 06/21/24 11:14 Creatinine 0.6 mg/dL (0.5-0.9) 06/21/24 11:14 GFR Calculation 111.9 mL/min (90-130) 06/21/24 11:14 Glucose 89 mg/dL (65-115) 06/21/24 11:14 Calculated Osmolality 289 mOsm/kg (285-295) 06/21/24 11:14 Calcium 8.9 mg/dL (8.5-10.5) 06/21/24 11:14 Total Bilirubin 0.2 mg/dL (0.15-1.2) 06/21/24 11:14 AST 11 U/L (0-32) 06/21/24 11:14 ALT 9 U/L (0-33) 06/21/24 11:14 Alkaline Phosphatase 82 U/L (35-105) 06/21/24 11:14 Total Protein 7.2 g/dL (6.6-8.7) 06/21/24 11:14 Albumin 4.2 g/dL (3.5-5.2) 06/21/24 11:14 Globulin 3.0 g/dL (1.3-4.6) 06/21/24 11:14 HCG, Qual Negative (Negative) 06/21/24 11:14 Urine Color Yellow (Yellow) 06/21/24 12:42 Urine Appearance Clear (CLEAR) 06/21/24 12:42 Urine pH 6.5 (5-7) 06/21/24 12:42 Ur Specific [place] 1.017 (1.005-1.030) 06/21/24 12:42 Urine Protein Negative (Negative) 06/21/24 12:42 Urine Glucose (UA) Negative (Normal) 06/21/24 12:42 Urine Ketones Negative (Negative) 06/21/24 12:42 Urine Blood Negative (Negative) 06/21/24 12:42 Urine Nitrate Negative (Negative) 06/21/24 12:42 Urine Bilirubin Negative (Negative) 06/21/24 12:42 Urine Urobilinogen 1.0 mg/dL (Negative) 06/21/24 12:42 Ur Leukocyte Esterase Trace (Negative) A 06/21/24 12:42 Urine RBC 0-2 /hpf (0-2) 06/21/24 12:42 Urine WBC 11-20 /hpf (0-5) H 06/21/24 12:42 Ur Squamous Epith Cells 11-20 /hpf (0-5) H 06/21/24 12:42 Amorphous Sediment Not Reportable 06/21/24 12:42 Urine Bacteria Trace /hpf (NONE) 06/21/24 12:42 Hyaline Casts 0-4 /lpf H 06/21/24 12:42 All radiology interpretation(s) finalized by discharge Discharge Plan Discharge Patient Disposition: Home Clinical Impression: Discomfort of back Condition: Stable Prescriptions: No Action acetaminophen [Tylenol] 325 mg Tablet 650 mg PO QID PRN (Reason: Fever Or Pain) Discharge Orders: Discharge ED (Routine); Ordered 06/21/24 Ordered By: Brandi Higgins Activity Restrictions/Additional Instructions: As we discussed, monitor symptoms closely. You may seek medical reevaluation for worsening back pain, vomiting, fevers, burning with urination, cloudy/odorous urine, frequency/urgency, blood in your urine, severe abdominal pain, or any other concerns you may have. Print Language: Somali Coding Level of Care Code ED Steam Brush Operator for Aayush Knutson
[2024-06-21 11:21] LABS: Basophils % 0.6 %; Eosinophils # 0.1 10^3/uL (0.0-0.8); Eosinophils % 0.7 %; Hematocrit 32.9 % (36-47); Lymphocytes # 1.5 10^3/uL (0.8-4.8); Lymphocytes % 21.6 %; Mean Corpuscular Hemoglobin 19.2 pg (27-33); Mean Corpuscular Volume 68.7 fl (85-98); Mean Platelet Volume 10.3 fL (7.4-10.4); Monocytes # 0.4 10^3/uL (0.2-0.9); Monocytes % 5.8 %; Neutrophils # 4.79 10^3/uL (1.8-7.7); Nucleated Red Blood Cells % 0 %; Platelet Count 174 10^3/cmm (157-399); Red Blood Count 4.79 10^6/uL (3.85-5.65); White Blood Count 6.75 10^3/uL (3.29-11.43)
[2024-06-21 11:31] LABS: HCG, Serum Qual Negative (Negative)
[2024-06-21 11:37] LABS: Alanine Aminotransferase 9 U/L (0-33); Albumin Level 4.2 g/dL (3.5-5.2); Alkaline Phosphatase 82 U/L (35-105); Anion Gap 15.1 (5-19); Aspartate Amino Transferase 11 U/L (0-32); Blood Urea Nitrogen 12 mg/dL (6-20); Calcium 8.9 mg/dL (8.5-10.5); Carbon Dioxide 23 mmol/L (22-29); Chloride 106 mmol/L (98-107); Glomerular Filtration Rate 111.9 mL/min (90-130); Glucose 89 mg/dL (65-115); Osmolality Calculated 289 mOsm/kg (285-295); Potassium 4.1 mmol/L (3.5-5.1); Sodium 140 mmol/L (136-145); Total Bilirubin 0.2 mg/dL (0.15-1.2); Total Protein 7.2 g/dL (6.6-8.7)
[2024-06-21 11:40] LABS: Bilirubin Urine Negative (Negative); Blood Urine Negative (Negative); Glucose Urine UA Negative (Normal); Ketones Urine Negative (Negative); Leukocyte Esterase Urine 1+ (Negative); Nitrate Urine Negative (Negative); Protein Urine Negative (Negative); Specific Gravity, Urine 1.021 (1.005-1.030); Urine Appearance Clear (CLEAR); Urine Color Yellow (Yellow); pH Urine 6.5 (5-7)
[2024-06-21 11:45] LABS: Add Urine Microscopic? YES; Bacteria Urine None Seen /hpf; RBC Urine 0-2 /hpf (0-2)
--- NOTE | 2024-06-21 11:52 | CT_ITS ---
WS: [id number] CT ABDOMEN AND PELVIS NONCONTRAST HISTORY: L flank/back pain TECHNIQUE: Imaging performed through the abdomen and pelvis. Coronal and sagittal reformats are submitted. All CT scans at [facility] use at least one of these dose optimization techniques: automated exposure control; mA and/or kV adjustment per patient size (includes targeted exams where dose is matched to clinical indication); or iterative reconstruction. DLP: 594.93 mGy.cm COMPARISON: 05/14/2022 Lower thorax: Lung bases are clear. Visualized heart is normal. No hiatal hernia. Liver: Normal size liver. No mass or bile duct dilatation. Gallbladder: Normal gallbladder. No pericholecystic fluid or cholelithiasis. No gallbladder wall thickening. Pancreas: Normal size and attenuation. Normal pancreatic duct. No pancreatitis or mass. Spleen: Normal. Adrenal glands: Normal. No mass. Right kidney: Normal size kidney. Nonobstructing calcifications in the upper pole measure 2 mm. No perinephric stranding. Normal size ureter. Left kidney: Normal size kidney. There are a few very tiny calcifications which are nonobstructing in the lower pole. No perinephric stranding. LEFT ureter is not dilated. Aorta: Calcification within the abdominal aorta. No aneurysm. No free fluid, intraperitoneal air or significant lymphadenopathy. GI tract: Normal noncontrast imaging of the stomach, small bowel and colon. No obstruction or wall thickening. Normal appendix. Abdominal wall: Negative. No hernia. Pelvis: No free fluid. Uterus is midline. Urinary bladder is not distended. Small ovarian follicles. Osseous structures: Unremarkable. CT/CT kidney stone [id number] IMPRESSION: 1. No renal or ureteral obstruction. 2. Very tiny nonobstructing bilateral renal calcifications. 3. No free fluid in the pelvis. 4. Normal appendix. 5. No GI tract obstruction.
[2024-06-21 13:24] LABS: Bilirubin Urine Negative (Negative); Blood Urine Negative (Negative); Glucose Urine UA Negative (Normal); Ketones Urine Negative (Negative); Leukocyte Esterase Urine Trace (Negative); Nitrate Urine Negative (Negative); Protein Urine Negative (Negative); Specific Gravity, Urine 1.017 (1.005-1.030); Urine Appearance Clear (CLEAR); Urine Color Yellow (Yellow); pH Urine 6.5 (5-7)
[2024-06-21 13:28] LABS: Add Urine Microscopic? YES; Bacteria Urine Trace /hpf; Hyaline Casts Urine 0-4 /lpf; RBC Urine 0-2 /hpf (0-2)
== END 2024-06-21 14:15 | disposition home or self-care (01) ==
PROVIDERS: Emergency Provider Physician Assistant
DX: M54.50 Low back pain, unspecified (principal); Z72.0 Tobacco use
CPT/HCPCS: 36415; 74176; 80053; 81001; 84703; 85025; 99284

== ENCOUNTER 2024-08-31 18:23 | Emergency (ER) | payer SELFPAY ==
[2024-08-31 18:24] VITALS: BP 150/89; PULSE 73; RESP 16; TEMP 36.4; O2SAT 97; BMI 26.9
--- NOTE | 2024-08-31 18:58 | W.ED.WOUNDLC ---
Documented by User: LORENA Posadas 08/31/24 19:01 HPI - Wound/Laceration General: Chief Complaint: Wound/Laceration Stated Complaint: right hand injury, & cuts deep Time Seen by Provider: 08/31/24 18:29 Source: patient Mode of arrival: ambulatory Limitations: no limitations History of Present Illness: Patient is a 38-year-old female who presents the emergency department after [place] States she washed it thoroughly afterwards dressed with a Band-Aid, but was concerned that it needed stitches. No active bleeding on arrival. No pain reported. Her tetanus is up-to-date. Onset (ago): hour(s) Extremity Location: Right: hand (Little finger) Place: outdoors Patient tetanus UTD: Yes Context: accidental Associated symptoms: Reports no associated symptoms; Denies chills, fever(s), nausea or vomiting Treatments prior to arrival: bandage Related Data Home Medications ?Medication ?Instructions ?Recorded ?Confirmed acetaminophen 325 mg tablet 650 mg PO QID PRN Fever Or Pain 06/21/24 06/21/24 (Tylenol) Previous Rx's ?Medication ?Instructions ?Recorded cephalexin 500 mg capsule 500 mg PO BID 5 days #10 caps 08/31/24 Allergies Allergy/AdvReac Type Severity Reaction Status Date / Time No Known Allergies Allergy Unverified 05/25/22 15:20 Review of Systems General: Reports: 10 or more systems reviewed and unremarkable except in HPI and below Const: Denies: fever(s) or chills Card: Denies: chest pain Resp: Denies: dyspnea GI: Denies: abdominal pain, nausea, vomiting or diarrhea Musc: Denies: extremity pain or joint pain Skin/Breast: Reports: new lesions (Laceration right little finger); Denies: rash, skin pain or skin tenderness Neuro: Denies: headache(s) PFSH ED PFSH: Medical History Multiple renal calculi Punctate hard to even see on CT scan. Lost custody of children Generalized anxiety disorder Major depressive disorder Surgical History S/P ureteral stent placement Status post laser lithotripsy of ureteral calculus History of tonsillectomy History of Social History Smoking and tobacco/nicotine status: current every day tobacco/nicotine user Substance/Drug Use: never Marital status: Current occupational status: unemployed Current gender identity: Female Physical Exam Const: COMMON NORMALS: no acute distress, average body habitus, patient oriented x3, no limitations, healthy appearing, alert and well nourished HENMT: COMMON NORMALS: normocephalic and atraumatic HEAD & SCALP: normocephalic and atraumatic Neck/C-Spine: COMMON NORMALS: full ROM, no lymphadenopathy, supple and no meningeal signs Resp: COMMON NORMALS: normal respiratory effort, No use of accessory muscles and clear to auscultation bilaterally AUSCULTATION: clear to auscultation bilaterally Cardio: COMMON NORMALS: regular rate and regular rhythm RATE: regular rate RHYTHM: regular rhythm Extremity: COMMON NORMALS: full ROM and capillary refill normal Neuro: COMMON NORMALS: patient oriented x3 SENSORIUM/ORIENTATION: Yes alert MENINGEAL SIGNS: Yes no meningeal signs Skin: COMMON NORMALS: turgor normal NARRATIVE SKIN EXAM: Very small, very superficial 1 cm laceration overlying right PIP joint. No active bleeding or contamination. GENERAL SKIN EXAM: turgor normal Course Vital Signs: Vital signs: Vital Signs Temperature 97.6 F 08/31/24 18:24 Pulse Rate 73 08/31/24 18:24 Respiratory Rate 16 08/31/24 18:24 Blood Pressure 150/89 08/31/24 18:24 Pulse Oximetry 97 08/31/24 18:24 Oxygen Delivery Me thod Room Air 08/31/24 18:24 MDM - Wound/Laceration Medical Decision Making Tetanus was up-to-date, this is a very superficial small laceration that did not require procedural closure and instead will be cleaned and dressed appropriately. Proper return precautions are given. Keflex prescribed prophylactically due to the conditions of which she was scratched. No radiology studies performed this visit Discharge Plan Discharge Patient Disposition: Home Clinical Impression: Finger laceration Qualifiers: Encounter type: initial encounter Finger: little finger Damage to nail status: without damage Foreign body presence: without foreign body Laterality: right Qualified Code(s): S61.216A - Laceration without foreign body of right little finger without damage to nail, initial encounter Condition: Stable Prescriptions: New cephalexin 500 mg capsule 500 mg PO BID 5 Days Qty: 10 0RF No Action acetaminophen [Tylenol] 325 mg Tablet 650 mg PO QID PRN (Reason: Fever Or Pain) Discharge Orders: Discharge ED (Routine); Ordered 08/31/24 Ordered By: Blu Peterson Patient Instructions: Pain Management, Patient Portal & Sonali Instructions Activity Restrictions/Additional Instructions: Superficial Finger Laceration Care Discharge Instructions for Superficial Laceration (Right Fifth Finger) - Wound Care: Gently clean the wound daily with clean tap water. Soap can be used around, but not directly in, the wound. Avoid hydrogen peroxide, iodine, or alcohol, as these can delay healing and are not superior to water for infection prevention. - Dressing: Keep the wound covered with a clean, moist, occlusive dressing (such as a film, hydrogel, or petroleum-based bandage). Change the dressing daily or if it becomes wet or dirty. Moist wound healing environments promote faster and better healing compared to dry dressings. - Activity: Use the hand as tolerated, but avoid activities that may re-injure the area. Protect the finger from further trauma. - Signs of Infection: Monitor for increasing redness, swelling, warmth, pus, or worsening pain. If any of these occur, or if fever develops, seek medical attention promptly. Infection may require antibiotics, which should only be prescribed by a healthcare professional if needed. - Tetanus: No further tetanus vaccination is needed at this time, as immunizations are up to date. The Advisory Committee on Immunization Practices and the Infectious Diseases Society of [place] recommend tetanus boosters only if more than 5 years have elapsed since the last dose for contaminated wounds, or 10 years for clean wounds. - Follow-Up: Return for evaluation if the wound does not improve, if there are signs of infection, or if there are concerns about healing. These instructions are based on current best practices for minor traumatic wounds and are supported by recent guidelines and reviews. 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 Documented by User: Jonathan John Allen, 09/01/24 00:33 HPI - Wound/Laceration General: Chief Complaint: Wound/Laceration Stated Complaint: right hand injury, & cuts deep Time Seen by Provider: 08/31/24 18:29 Related Data Home Medications ?Medication ?Instructions ?Recorded ?Confirmed acetaminophen 325 mg tablet 650 mg PO QID PRN Fever Or Pain 06/21/24 06/21/24 (Tylenol) Previous Rx's ?Medication ?Instructions ?Recorded cephalexin 500 mg capsule 500 mg PO BID 5 days #10 caps 08/31/24 Allergies Allergy/AdvReac Type Severity Reaction Status Date / Time No Known Allergies Allergy Unverified 05/25/22 15:20 PFSH ED PFSH: Medical History Multiple renal calculi Punctate hard to even see on CT scan. Lost custody of children Generalized anxiety disorder Major depressive disorder Surgical History S/P ureteral stent placement Status post laser lithotripsy of ureteral calculus History of tonsillectomy History of Social History Smoking and tobacco/nicotine status: current every day tobacco/nicotine user Substance/Drug Use: never Marital status: Current occupational status: unemployed Current gender identity: Female Course Vital Signs: Vital signs: Vital Signs Temperature 97.6 F 08/31/24 18:24 Pulse Rate 73 08/31/24 18:24 Respiratory Rate 16 08/31/24 18:24 Blood Pressure 150/89 08/31/24 18:24 Pulse Oximetry 97 08/31/24 18:24 Oxygen Delivery Me thod Room Air 08/31/24 18:24 MDM - Wound/Laceration Medical Decision Making Tetanus was up-to-date, this is a very superficial small laceration that did not require procedural closure and instead will be cleaned and dressed appropriately. Proper return precautions are given. Keflex prescribed prophylactically due to the conditions of which she was scratched. This patient was originally seen by Mr. Nicholas PA-C. I agree with his history, evaluation, and management. Discharge Plan Discharge Patient Disposition: Home Clinical Impression: Finger laceration Qualifiers: Encounter type: initial encounter Finger: little finger Damage to nail status: without damage Foreign body presence: without foreign body Laterality: right Qualified Code(s): S61.216A - Laceration without foreign body of right little finger without damage to nail, initial encounter Condition: Stable Prescriptions: New cephalexin 500 mg capsule 500 mg PO BID 5 Days Qty: 10 0RF No Action acetaminophen [Tylenol] 325 mg Tablet 650 mg PO QID PRN (Reason: Fever Or Pain) Discharge Orders: Discharge ED (Routine); Ordered 08/31/24 Ordered By: Blu Peterson Patient Instructions: Pain Management, Patient Portal & Sonali Instructions Activity Restrictions/Additional Instructions: Superficial Finger Laceration Care Discharge Instructions for Superficial Laceration (Right Fifth Finger) - Wound Care: Gently clean the wound daily with clean tap water. Soap can be used around, but not directly in, the wound. Avoid hydrogen peroxide, iodine, or alcohol, as these can delay healing and are not superior to water for infection prevention. - Dressing: Keep the wound covered with a clean, moist, occlusive dressing (such as a film, hydrogel, or petroleum-based bandage). Change the dressing daily or if it becomes wet or dirty. Moist wound healing environments promote faster and better healing compared to dry dressings. - Activity: Use the hand as tolerated, but avoid activities that may re-injure the area. Protect the finger from further trauma. - Signs of Infection: Monitor for increasing redness, swelling, warmth, pus, or worsening pain. If any of these occur, or if fever develops, seek medical attention promptly. Infection may require antibiotics, which should only be prescribed by a healthcare professional if needed. - Tetanus: No further tetanus vaccination is needed at this time, as immunizations are up to date. The Advisory Committee on Immunization Practices and the Infectious Diseases Society of [place] recommend tetanus boosters only if more than 5 years have elapsed since the last dose for contaminated wounds, or 10 years for clean wounds. - Follow-Up: Return for evaluation if the wound does not improve, if there are signs of infection, or if there are concerns about healing. These instructions are based on current best practices for minor traumatic wounds and are supported by recent guidelines and reviews. 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
== END 2024-08-31 19:03 | disposition home or self-care (01) ==
PROVIDERS: Emergency Provider Physician Assistant
DX: S61.216A Laceration without foreign body of right little finger without damage to nail, initial encounter (principal); Z72.0 Tobacco use; W25.XXXA Contact with sharp glass, initial encounter
CPT/HCPCS: 99283

== ENCOUNTER 2024-09-24 18:07 | Emergency (ER) | payer SELFPAY ==
[2024-09-24 18:51] VITALS: BP 123/82; PULSE 76; RESP 16; TEMP 36.8; O2SAT 98
--- NOTE | 2024-09-24 19:05 | ED_ITS ---
HPI - Dental/Oral 2 General: Chief complaint: Dental/Oral Stated complaint: Tooth Ache Time Seen by Provider: 09/24/24 18:21 History of Present Illness: Patient had a fractured tooth previously, however the last day and a half she has had increasing pain that is now radiating from her right upper fractured tooth up the side of her face and into her eye. She does not have establishment with a dentist. She denies a fever. She is able to open her mouth. Associated symptoms: Denies fever(s) or odynophagia Related Data Home Medications ?Medication ?Instructions ?Recorded ?Confirmed acetaminophen 325 mg tablet 650 mg PO QID PRN Fever Or Pain 06/21/24 06/21/24 (Tylenol) Previous Rx's ?Medication ?Instructions ?Recorded amoxicillin 500 mg capsule 500 mg PO BID 10 days #20 c aps 09/24/24 diclofenac sodium 75 mg 75 mg PO BID #30 tabs tablet,delayed release Allergies Allergy/AdvReac Type Severity Reaction Status Date / Time No Known Allergies Allergy Unverified 05/25/22 15:20 Review of Systems 2 General: Reports: 10 or more systems reviewed and unremarkable except in HPI and below Const: Denies: fever(s) or chills ENMT: Reports: dental pain and halitosis; Denies: throat pain or odynophagia Card: Denies: chest pain Resp: Denies: dyspnea GI: Denies: abdominal pain, nausea, vomiting or diarrhea Musc: Denies: extremity pain or joint pain Skin/Breast: Reports: new lesions (Laceration right little finger); Denies: rash, skin pain or skin tenderness Neuro: Denies: headache(s) PFS ED 2 PFSH: Medical History (Updated 09/24/24 @ 19:08 by LORENA Valencia) Multiple renal calculi Punctate hard to even see on CT scan. Lost custody of children Generalized anxiety disorder Major depressive disorder Surgical History S/P ureteral stent placement Status post laser lithotripsy of ureteral calculus History of tonsillectomy History of Social History Smoking and tobacco/nicotine status: current every day tobacco/nicotine user Substance/Drug Use: never Marital status: Current occupational status: unemployed Current gender identity: Female Physical Exam 2 Const: COMMON NORMALS: no acute distress, average body habitus, patient oriented x3, no limitations, healthy appearing, alert and well nourished HENMT: COMMON NORMALS: normocephalic, atraumatic, TM's normal bilaterally and Normal external nose present HEAD & SCALP: normocephalic and atraumatic F MICHAEL & SINUS: sinus tenderness maxillary (Right); no fluctuance NOSE: Normal external nose present; no Nasal discharge present TYMPANIC MEMBRANE: TM's normal bilaterally TEETH & GINGIVA IMAGES: 1. Partial fracture medially, fullness without induration, mild local erythema Neck/C-Spine: COMMON NORMALS: full ROM, no lymphadenopathy, supple and no meningeal signs Resp: COMMON NORMALS: normal respiratory effort, No use of accessory muscles and clear to auscultation bilaterally AUSCULTATION: clear to auscultation bilaterally Cardio: COMMON NORMALS: regular rate and regular rhythm RATE: regular rate RHYTHM: regular rhythm GI: COMMON NORMALS: Normal to inspection, nondistended, normoactive bowel sounds present : COMMON NORMALS: Yes no CVA tenderness BLADDER/KIDNEY EXAM: Yes no CVA tenderness Back/Pelvis: COMMON NORMALS: no CVA tenderness Extremity: COMMON NORMALS: full ROM and capillary refill normal Neuro: COMMON NORMALS: patient oriented x3 SENSORIUM/ORIENTATION: Yes alert MENINGEAL SIGNS: Yes no meningeal signs Skin: COMMON NORMALS: turgor normal GENERAL SKIN EXAM: turgor normal Course 2 Vital Signs: Vital signs: Vital Signs Temperature 98.3 F 09/24/24 18:51 Pulse Rate 76 09/24/24 18:51 Respiratory Rate 16 09/24/24 18:51 Blood Pressure 123/82 09/24/24 18:51 Pulse Oximetry 98 09/24/24 18:51 Oxygen Delivery Me thod Room Air 09/24/24 18:51 MDM - Dental/Oral Medical Decision Making Patient is 38-year-old female with dental fracture, dental pain, and dental fullness. She is able to fully open her mouth. She has radiation of the right side of her face. Discussed the limitations of the ED. Patient will make an appointment with dentist tomorrow. Discussed antibiotic therapy, and anti- inflammatory, and cautions given with Toradol, and diclofenac regarding gastric ulcers. Patient states understanding and will add additional PPI versus H2 as discussed with her in person if needed. All of her questions answered to her satisfaction. No radiology studies performed this visit Discharge Plan Discharge Patient Disposition: Home Clinical Impression: Toothache Fracture of tooth Qualifiers: Encounter type: initial encounter Fracture type: open Qualified Code(s): S 02.5XXB - Fracture of tooth (traumatic), initial encounter for open fracture Condition: Stable Prescriptions: New amoxicillin 500 mg capsule 500 mg PO BID 10 Days Qty: 20 0RF diclofenac sodium 75 mg tablet,delayed release (DR/EC) 75 mg PO BID Qty: 30 0RF No Action acetaminophen [Tylenol] 325 mg Tablet 650 mg PO QID PRN (Reason: Fever Or Pain) Discharge Orders: Discharge ED (Routine); Ordered 09/24/24 Ordered By: Luisa Bazzi Discharge Diet: Soft Mechanical and Full LIquid Discharge Activity: Resume usual activity Patient Instructions: Toothache (ED), Opioid Safety, Pain Management, Patient Portal & Sonali Instructions Activity Restrictions/Additional Instructions: Call for dentist appointment in the morning?we are unable to remove the rest of your tooth from the ER. Antibiotics will certainly help the infection in your fractured tooth, however removal is the cure for your issue. You may utilize an ice pack to the side of your mouth that will help the pain. Orajel helps the pain that you can obtain [id number]. Diclofenac, powerful anti-inflammatory was sent to the pharmacy with your amoxicillin. Follow directions and take medication twice daily. Obtain early in the morning. Utilize a probiotic or active culture yogurt to avoid infectious diarrhea. Return to the ED if you are unable to open your mouth, have increasing redness, or temperature greater than 100.4 ?F Stand Alone Forms: Work/School Release Print Language: Polish Coding Level of Care Code ED [employer] Mechanical Instrument Maker for Aayush Knutson
[2024-09-24] MEDS: HYDROcodone-acetaminophen 5-325 mg Tablet 1 TAB PO (19:13)
== END 2024-09-24 19:16 | disposition home or self-care (01) ==
PROVIDERS: Emergency Provider Physician Assistant
DX: S02.5XXB Fracture of tooth (traumatic), initial encounter for open fracture (principal); K08.89 Other specified disorders of teeth and supporting structures; Z72.0 Tobacco use; X58.XXXA Exposure to other specified factors, initial encounter
CPT/HCPCS: 96372; 99284; J1885; J9999

== ENCOUNTER 2024-10-26 14:41 | Emergency (ER) | payer SELFPAY ==
[2024-10-26 14:51] VITALS: BP 165/113; PULSE 72; RESP 16; TEMP 36.9; O2SAT 98; BMI 26.7
[2024-10-26] MEDS: HYDROcodone-acetaminophen 7.5-325 mg Tablet 2 TAB PO (15:15)
--- NOTE | 2024-10-26 15:32 | ED_ITS ---
Documented by User: LORENA Posadas 10/26/24 15:42 HPI - Dental/Oral General: Chief complaint: Dental/Oral Stated complaint: upper right dental Time Seen by Provider: 10/26/24 14:49 Source: patient Mode of arrival: ambulatory Limitations: no limitations History of Present Illness: Patient is a 39-year-old female who presents emergency department complaining of right upper dental pain for approximately a month. She reports a history of previous dental infections and states this feels similar, she is noting pain and swelling expanding into her face towards her right ear but is not reporting any proptosis, visual changes, or pain with extraocular movements. No fever or trouble swallowing. Patient is edentulous. She states that she has not tried to call the dentist but is planning on doing so early next week, is just here for pain relief. Vitals are stable, patient nontoxic-appearing. Onset (ago): month(s) (1) Duration: constant Severity: severe Relieving factors: nothing Context: history of dental caries and poor dental care Associated symptoms: Denies ear or mastoid pain, fever(s) or odynophagia Related Data Home Medications ?Medication ?Instructions ?Recorded ?Confirmed acetaminophen 325 mg tablet 650 mg PO QID PRN Fever Or Pain 06/21/24 06/21/24 (Tylenol) Previous Rx's ?Medication ?Instructions ?Recorded diclofenac sodium 75 mg 75 mg PO BID #30 tabs tablet,delayed release amoxicillin 875 mg-potassium 1 tab PO BID 7 days #14 t abs 10/26/24 clavulanate 125 mg tablet Allergies Allergy/AdvReac Type Severity Reaction Status Date / Time No Known Allergies Allergy Unverified 10/26/24 14:53 Review of Systems General: Reports: 10 or more systems reviewed and unremarkable except in HPI and below Const: Denies: fever(s), chills or fatigue Eyes: Denies: change in vision or eye discomfort ENMT: Reports: dental pain and sinus pain; Denies: throat pain, uvular edema, odynophagia, swelling of lips/tongue, oral sores, bleeding gums, halitosis, ear or mastoid pain or ear discharge Card: Denies: chest pain Resp: Denies: dyspnea GI: Denies: abdominal pain, nausea, vomiting or diarrhea Musc: Denies: neck pain Neuro: Denies: headache(s) PFSH ED PFSH: Medical History Multiple renal calculi Punctate hard to even see on CT scan. Lost custody of children Generalized anxiety disorder Major depressive disorder Surgical History S/P ureteral stent placement Status post laser lithotripsy of ureteral calculus History of tonsillectomy History of Social History Smoking and tobacco/nicotine status: current every day tobacco/nicotine user Substance/Drug Use: never Marital status: Current occupational status: unemployed Current gender identity: Female Physical Exam Const: COMMON NORMALS: no acute distress, patient oriented x3 and no limitations GENERAL APPEARANCE: cooperative, comfortable and well developed ORIENTATION/CONSCIOUSNESS: Yes awake HENMT: COMMON NORMALS: normocephalic, atraumatic and hearing grossly normal bilaterally HEAD & SCALP: normocephalic and atraumatic THROAT: no uvular edema OTHER: Patient is edentulous. There is gingival edema and tenderness to palpation to the right upper dentition. There is mild swelling to the patient's right maxillary region. Posterior oropharyngeal exam does not reveal any signs of imp ending airway compromise or edema. Eye: COMMON NORMALS: Equal, round and reactive pupils present, EOMs intact bilaterally and conjunctivae normal CONJUNCTIVA: Yes conjunctivae normal PUPIL: Yes Equal, round and reactive pupils present Neck/C-Spine: COMMON NORMALS: full ROM, supple and no JVD Resp: COMMON NORMALS: normal respiratory effort, No retractions, No use of a ccessory muscles and clear to auscultation bilaterally AUSCULTATION: clear to auscultation bilaterally Cardio: COMMON NORMALS: no JVD, regular rate, regular rhythm, No clicks present (Cardio), No murmurs present (Cardio) and No rub (Cardio) RATE: regular rate RHYTHM: regular rhythm Extremity: COMMON NORMALS: normal to inspection, full ROM and capillary refill normal Neuro: COMMON NORMALS: patient oriented x3, moves all extremities, no focal motor deficits and no sensory deficits noted Skin: COMMON NORMALS: no rashes or lesions noted GENERAL SKIN EXAM: no rashes or lesions noted Course Vital Signs: Vital signs: Vital Signs Temperature 98.5 F 10/26/24 14:51 Pulse Rate 72 10/26/24 14:51 Respiratory Rate 16 10/26/24 14:51 Blood Pressure 165/113 10/26/24 14:51 Pulse Oximetry 98 10/26/24 14:51 Oxygen Delivery Me thod Room Air 10/26/24 14:51 MDM - Dental/Oral Medical Decision Making Patient presenting with complaints of right upper dental pain for a month. She has not tried to contact dentist. She does report history of dental abscess/infection in the past states this feels similar and that she is started have worsening pain and swelling into her face. She is a dentulous, on exam there is edema and tenderness to the right upper gingiva. However airway is not compromised, she had no fever or other symptoms of illness and overall nontoxic- appearing. She states that she is going to call dentist next week, I urged her to do this as they will be able to take dental images and evaluate further, in the meantime, and due to her previous reports of similar in the past, will treat for dental abscess with a week of Augmentin, she is also given Decadron shot here in the ED for her facial swelling. She is given return precautions, stable for discharge home. No radiology studies performed this visit Discharge Plan Discharge Patient Disposition: Home Clinical Impression: Dental abscess Condition: Stable Prescriptions: New amoxicillin-pot clavulanate 875-125 mg tablet 1 tab PO BID 7 Days Qty: 14 0RF No Action acetaminophen [Tylenol] 325 mg Tablet 650 mg PO QID PRN (Reason: Fever Or Pain) diclofenac sodium 75 mg tablet,delayed release (DR/EC) 75 mg PO BID Qty: 30 0RF Discharge Orders: Discharge ED (Routine); Ordered 10/26/24 Ordered By: Blu Peterson Patient Instructions: Patient Portal & Sonali Instructions Activity Restrictions/Additional Instructions: Dental Abscess Discharge Instructions Diagnosis: Dental abscess (localized acute apical abscess) in a 39-year-old female, presenting with facial swelling and pain. Patient is immunocompetent and has a scheduled dental appointment next week. Definitive Management: - The [place] [employer] recommends that the primary treatment for dental abscess is definitive, conservative dental therapy (e.g., root canal, incision and drainage) performed by a dentist or mental health technician. Antibiotics are adjunctive and indicated when immediate dental intervention is not possible or if there is evidence of spreading infection (cellulitis, diffuse swelling, sys temic symptoms). Antibiotic Therapy: - Amoxicillin-clavulanate (Augmentin) is prescribed at 875 mg/125 mg orally twice daily for 7 days, as per ADA recommendations for cases where first-line therapy (amoxicillin or penicillin VK) is inadequate or when broader coverage is needed. - Instruct patient to discontinue antibiotics 24 hours after symptoms resolve, even if the full 7-day course is not completed. - Loss Control Representative on signs of antibiotic failure (worsening pain, swelling, fever, malaise) and adverse drug reactions (rash, diarrhea, abdominal pain, signs of Clostridioides difficile infection). - Emphasize the importance of antibiotic stewardship; unnecessary use increases risk of resistance and adverse events. Adjunctive Therapy: - A single dose of dexamethasone (Decadron) was administered for facial swelling and inflammation. Evidence supports a modest reduction in pain at 12 hours post-administration, with no significant effect beyond this period. - No further corticosteroid therapy is indicated unless directed by dental or medical provider. Analgesia: - Perry (hydrocodone-acetaminophen) prescribed for breakthrough pain. Opioid use should be minimized; non-opioid analgesics (NSAIDs, acetaminophen) are preferred first-line agents for dental pain. - Loss Control Representative on opioid risks: sedation, constipation, dependence, and cumulative acetaminophen dose (do not exceed 4,000 mg acetaminophen per day). - Advise use of ibuprofen (400?600 mg every 6?8 hours) and/or acetaminophen (1,000 mg every 6 hours) as first-line analgesia, unless contraindicated. Follow-Up and Monitoring: - Patient should contact dental provider promptly if symptoms worsen (increased swelling, difficulty swallowing, fever, malaise, or trismus), or if unable to obtain definitive dental care within 1?2 days. - Re-evaluation is recommended within 3 days to assess response to therapy. - Advise patient to keep scheduled dental appointment for definitive management. Patient Education: - Explain that antibiotics alone do not resolve the source of infection; dental intervention is required for cure. - Reinforce importance of completing dental follow-up and monitoring for complications. Special Considerations: - If penicillin allergy is reported, alternative agents (cephalexin, azithromycin, clindamycin) may be considered, with attention to risk of C. difficile infection and resistance. - If symptoms resolve before completion of antibiotic course, discontinue antibiotics 24 hours after resolution. Summary of [facility] Instructions: - Take Augmentin as prescribed; stop 24 hours after symptoms resolve. - Use Perry only for severe pain; prefer NSAIDs/acetaminophen if possible. - Monitor for worsening symptoms or adverse drug reactions. - Attend dental appointment for definitive care. - Seek urgent care if systemic symptoms develop. Print Language: Albanian Coding Level of Care Code ED Manager Learning for Chg Fwd Documented by User: Chris Galeas DO 10/28/24 07:12 HPI - Dental/Oral General: Chief complaint: Dental/Oral Stated complaint: upper right dental Time Seen by Provider: 10/26/24 14:49 Related Data Home Medications ?Medication ?Instructions ?Recorded ?Confirmed acetaminophen 325 mg tablet 650 mg PO QID PRN Fever Or Pain 06/21/24 06/21/24 (Tylenol) Previous Rx's ?Medication ?Instructions ?Recorded diclofenac sodium 75 mg 75 mg PO BID #30 tabs tablet,delayed release amoxicillin 875 mg-potassium 1 tab PO BID 7 days #14 t abs 10/26/24 clavulanate 125 mg tablet Allergies Allergy/AdvReac Type Severity Reaction Status Date / Time No Known Allergies Allergy Unverified 10/26/24 14:53 PFSH ED PFSH: Medical History Multiple renal calculi Punctate hard to even see on CT scan. Lost custody of children Generalized anxiety disorder Major depressive disorder Surgical History S/P ureteral stent placement Status post laser lithotripsy of ureteral calculus History of tonsillectomy History of Social History Smoking and tobacco/nicotine status: current every day tobacco/nicotine user Substance/Drug Use: never Marital status: Current occupational status: unemployed Current gender identity: Female Course Vital Signs: Vital signs: Vital Signs Temperature 98.5 F 10/26/24 14:51 Pulse Rate 72 10/26/24 14:51 Respiratory Rate 16 10/26/24 14:51 Blood Pressure 165/113 10/26/24 14:51 Pulse Oximetry 98 10/26/24 14:51 Oxygen Delivery Me thod Room Air 10/26/24 14:51 MDM - Dental/Oral Medical Decision Making Patient presenting with complaints of right upper dental pain for a month. She has not tried to contact dentist. She does report history of dental abscess /infection in the past states this feels similar and that she is started have worsening pain and swelling into her face. She is a dentulous, on exam there is edema and tenderness to the right upper gingiva. However airway is not compromised, she had no fever or other symptoms of illness and overall nontoxic- appearing. She states that she is going to call dentist next week, I urged her to do this as they will be able to take dental images and evaluate further, in the meantime, and due to her previous reports of similar in the past, will treat for dental abscess with a week of Augmentin, she is also given Decadron shot here in the ED for her facial swelling. She is given return precautions, stable for discharge home. Chart reviewed and patient discussed with midlevel. Agree with assessment and plan. Discharge Plan Discharge Patient Disposition: Home Clinical Impression: Dental abscess Condition: Stable Prescriptions: New amoxicillin-pot clavulanate 875-125 mg tablet 1 tab PO BID 7 Days Qty: 14 0RF No Action acetaminophen [Tylenol] 325 mg Tablet 650 mg PO QID PRN (Reason: Fever Or Pain) diclofenac sodium 75 mg tablet,delayed release (DR/EC) 75 mg PO BID Qty: 30 0RF Discharge Orders: Discharge ED (Routine); Ordered 10/26/24 Ordered By: Blu Peterson Patient Instructions: Patient Portal & Sonali Instructions Activity Restrictions/Additional Instructions: Dental Abscess Discharge Instructions Diagnosis: Dental abscess (localized acute apical abscess) in a 39-year-old female, presenting with facial swelling and pain. Patient is immunocompetent and has a scheduled dental appointment next week. Definitive Management: - The [place] [employer] recommends that the primary treatment for dental abscess is definitive, conservative dental therapy (e.g., root canal, incision and drainage) performed by a dentist or mental health technician. Antibiotics are adjunctive and indicated when immediate dental intervention is not possible or if there is evidence of spreading infection (cellulitis, diffuse swelling, s ystemic symptoms). Antibiotic Therapy: - Amoxicillin-clavulanate (Augmentin) is prescribed at 875 mg/125 mg orally twice daily for 7 days, as per ADA recommendations for cases where first-line therapy (amoxicillin or penicillin VK) is inadequate or when broader coverage is needed. - Instruct patient to discontinue antibiotics 24 hours after symptoms resolve, even if the full 7-day course is not completed. - Loss Control Representative on signs of antibiotic failure (worsening pain, swelling, fever, malaise) and adverse drug reactions (rash, diarrhea, abdominal pain, signs of Cl ostridioides difficile infection). - Emphasize the importance of antibiotic stewardship; unnecessary use increases risk of resistance and adverse events. Adjunctive Therapy: - A single dose of dexamethasone (Decadron) was administered for facial swelling and inflammation. Evidence supports a modest reduction in pain at 12 hours post-administration, with no significant effect beyond this period. - No further corticosteroid therapy is indicated unless directed by dental or medical provider. Analgesia: - Perry (hydrocodone-acetaminophen) prescribed for breakthrough pain. Opioid use should be minimized; non-opioid analgesics (NSAIDs, acetaminophen) are preferred first-line agents for dental pain. - Loss Control Representative on opioid risks: sedation, constipation, dependence, and cumulative acetaminophen dose (do not exceed 4,000 mg acetaminophen per day). - Advise use of ibuprofen (400?600 mg every 6?8 hours) and/or acetaminophen (1,000 mg every 6 hours) as first-line analgesia, unless contraindicated. Follow-Up and Monitoring: - Patient should contact dental provider promptly if symptoms worsen (increased swelling, difficulty swallowing, fever, malaise, or trismus), or if unable to obtain definitive dental care within 1?2 days. - Re-evaluation is recommended within 3 days to assess response to therapy. - Advise patient to keep scheduled dental appointment for definitive management. Patient Education: - Explain that antibiotics alone do not resolve the source of infection; dental intervention is required for cure. - Reinforce importance of completing dental follow-up and monitoring for complications. Special Considerations: - If penicillin allergy is reported, alternative agents (cephalexin, azithromycin, clindamycin) may be considered, with attention to risk of C. difficile infection and resistance. - If symptoms resolve before completion of antibiotic course, discontinue antibiotics 24 hours after resolution. Summary of [facility] Instructions: - Take Augmentin as prescribed; stop 24 hours after symptoms resolve. - Use Perry only for severe pain; prefer NSAIDs/acetaminophen if possible. - Monitor for worsening symptoms or adverse drug reactions. - Attend dental appointment for definitive care. - Seek urgent care if systemic symptoms develop. Print Language: Albanian Coding Level of Care Code ED Manager Learning for Aayush Knutson
== END 2024-10-26 15:19 | disposition home or self-care (01) ==
PROVIDERS: Emergency Provider Physician Assistant
DX: K04.7 Periapical abscess without sinus (principal)
CPT/HCPCS: 96372; 99284; J1100; J9999